=== PATIENT | male | born 1975 | race Caucasian/White ===

== ENCOUNTER 2017-11-08 20:26 | Observation (INO) ==
[2017-11-08] MEDS ORDERED: Aspirin 81 MG TAB.CHEW PO ONE (20:36)
--- NOTE | 2017-11-08 20:39 | Emergency Department Note ---
Disposition Clinical Impression: Chest pain Qualifiers: Chest pain type: unspecified Qualified Code(s): R07.9 - Chest pain, unspecified Disposition: Admitted As Inpatient Condition: Good Referrals: Daniel Mayer MD [Primary Care Provider] - Forms: ED Satisfaction Letter Time of Disposition: 22:14 Chest Pain HPI - General Chief Complaint: ED Shortness of Breath/Dyspnea Stated Complaint: "Chest Tight/SOB" Time Seen by Provider: 11/08/17 20:36 Source: patient Mode of arrival: ambulatory Limitations: no limitations Vital Signs Reviewed: Yes Nursing Notes Reviewed: Yes - History of Present Illness HPI Narrative: 42-year-old male comes in complaining of chest tightness and heaviness since last night. Patient has no recent cardiac workup. The patient's has a very strong family history with both his mom and dad have a early ME. The patient is a smoker, has high blood pressure, has high cholesterol. Pt complaint: chest pain Onset (ago): hour(s) (24) Duration: constant Onset: during rest Pain Location: substernal, left chest Severity: moderate Severity scale (1-10): 5 Quality: tightness, aching, heaviness Pain Radiation: none Improves with: nothing Worsens with: nothing Associated symptoms: Reports: dyspnea Treatments prior to arrival chest pain: none - Related Data Home Medications Medication Instructions Recorded Confirmed Albuterol Neb [Proventil Neb] 2.5 mg IH TID 11/08/17 11/08/17 Albuterol Sulfate [Proair Hfa] 2 puff IH Q6H PRN 11/08/17 11/08/17 Amitriptyline [Elavil] 50 mg PO HS 11/08/17 11/08/17 Beclomethasone Diprop 80mcg [Qvar 1 puff IH BID 11/08/17 11/08/17 80 mcg] Dextroamphetamine/Amphetamine 20 mg PO BID 11/08/17 11/08/17 [Adderall 20 mg Tablet] Fenofibric Acid (Choline) 135 mg PO DAILY 11/08/17 [Trilipix] Gabapentin [Neurontin] 1,200 mg PO TID 11/08/17 11/08/17 Lidocaine Patch [Lidoderm 5% patch] 1 each TP DAILY 11/08/17 11/08/17 Lisinopril/Hydrochlorothiazide 1 each PO DAILY 11/08/17 11/08/17 [Zestoretic 10-12.5 mg Tablet] Meloxicam [Meloxicam] 15 mg PO DAILY 11/08/17 11/08/17 OLANZapine [Zyprexa] 20 mg PO HS 11/08/17 11/08/17 Perphenazine [Trilafon] 2 mg PO BID 11/08/17 11/08/17 Pravastatin Sodium [Pravachol] 20 mg PO HS 11/08/17 11/08/17 Testosterone [Androgel] 20.25 mg TP DAILY 11/08/17 11/08/17 clonazePAM [Klonopin] 1 mg PO BID 11/08/17 11/08/17 Allergies Allergy/AdvReac Type Severity Reaction Status Date / Time metoclopramide [From Reglan] Allergy Hallucinati Verified 07/07/15 17:34 ng All systems ED: reviewed and negative except as stated. Constitutional: Denies: fever, chills, weakness, weight change Eyes: Denies: eye pain, eye discharge, vision change ENT ED: Denies: ear pain, throat pain, dental pain, hearing loss, epistaxis, congestion, dysphagia Cardiovascular: Reports: chest pain. Denies: palpitations, dyspnea on exertion , edema, syncope Respiratory: Denies: cough, dyspnea, wheezes, hemoptysis, stridor Gastrointestinal: Denies: abdominal pain, nausea, vomiting, diarrhea, constipation, hematemesis, melena, hematochezia Genitourinary: Denies: urgency, dysuria, frequency, hematuria Musculoskeletal: Denies: back pain, neck pain, arthralgia, myalgia Integumentary: Denies: rash, abrasion, lesions Neurological: Denies: headache, weakness, numbness, paresthesias, confusion, abnormal gait, vertigo Psychiatric: Denies: anxiety, depression, suicidal thoughts, homicidal thoughts , auditory hallucinations, visual hallucinations Endocrine: Denies: fatigue Hematological/Lymphatic: Denies: easy bleeding, easy bruising Allergic/Immunologic: Denies: facial swelling, urticaria Chest Pain PMH - Past Medical History Medical history: Reports: arthritis, COPD, coronary artery disease, hyperlipidemia, hypertension Surgical history: Reports: knee replacement Psychiatric history: Reports: anxiety - Social History Smoking Status: Current every day smoker Alcohol use: Reports: none Drug use: Reports: none Physical Exam - General Limitations: no limitations General appearance: alert, in no apparent distress - Head Head exam: atraumatic, normocephalic, normal inspection - Eye Eye exam: Present: normal appearance, PERRL, EOMI - ENT ENT exam: normal exam, normal oropharynx, mucous membranes moist - Neck Neck exam: Present: normal inspection - Chest Chest inspection: Present: normal inspection, symmetric chest wall rise - Respiratory Respiratory exam: Present: normal lung sounds bilaterally - Cardiovascular Cardiovascular exam: Present: regular rate - Abdominal Exam Abdominal exam: Present: soft, Non-Tender. Absent: tenderness, distention, guarding, rebound, rigidity - Extremities Exam Extremities exam: Present: normal inspection, full ROM. Absent: tenderness, pedal edema - Expanded Lower Extremity Exam Neurovascular/Tendon exam: Absent: motor deficit, sensory deficit, tendon deficit Gait: observed and normal - Back Exam Back exam: Present: normal inspection, full ROM. Absent: tenderness - Neurological Exam Neurological exam: Present: alert, oriented X3 - Psychiatric Psychiatric exam: Present: normal affect, normal mood - Skin Skin exam: Present: warm, dry, intact, normal color Course - Reevaluation(s) Reevaluation #1: 42-year-old male with multiple risk factors come in complaining of chest pain. The EKG showed no acute changes and initial troponin is negative in light of his multiple risk factors and his pain that is consistent with a cardiac origin chest pain or going to admit. Time: 22:14 - Consultations Consultation #1: Discussed with gail Ward. Time: 22:57 Vital Signs Temperature 97.7 F 11/08/17 20:27 Pulse Rate 107 11/08/17 20:27 Respiratory Rate 16 11/08/17 20:27 Blood Pressure 156/97 11/08/17 20:27 O2 Sat by Pulse Oximetry 99 11/08/17 20:27 Temperature 97.7 F 11/08/17 20:27 Pulse Rate 85 11/08/17 22:56 Respiratory Rate 16 11/08/17 22:56 Blood Pressure 130/52 11/08/17 22:56 O2 Sat by Pulse Oximetry 96 11/08/17 22:56 Oxygen Delivery Oxygen Delivery Room Air Chest Pain - Lab Data Lab results reviewed: Yes I reviewed the patient's lab results. Result diagrams: 11/08/17 20:46 11/08/17 20:46 Lab Results 11/08/17 11/08/17 11/08/17 Range/Units 20:36 20:46 20:46 WBC 7.0 (4.3-11.1) K/mcL RBC 5.13 (4.19-5.50) M/mcL Hgb 15.7 (12.9-16.9) g/dL Hct 46.5 (37.5-50.1) % MCV 90.6 (83.0-100.0) fL MCH 30.6 (28.0-33.3) pg MCHC 33.8 (31.6-35.5) g/dL RDW 13.8 (11.5-14.5) % Plt Count 222 (140-400) K/mcL MPV 10.5 (9.4-12.4) fL Immature Gran % 0.3 (0-4) % Seg Neutrophils % 50.7 % Lymphocytes % 40.5 % Monocytes % 5.9 % Eosinophils % 1.7 % Basophils % 0.9 % Neutrophils # 3.5 (1.6-8.9) K/mcL Lymphocytes # 2.8 (0.6-4.6) K/mcL Monocytes # 0.4 (0.0-1.3) K/mcL Eosinophils # 0.1 (0.0-0.6) K/mcL Basophils # 0.1 (0.0-0.2) K/mcL PT 10.1 (9.4-12.1) Seconds INR 0.9 APTT 27.9 (26.0-36.0) Seconds Sodium 139 (136-145) mEq/L Potassium 3.6 (3.5-5.1) mEq/L Chloride 101 (98-107) mEq/L Carbon Dioxide 32 H (23-29) mEq/L BUN 12 (6-20) mg/dL Creatinine 1.00 (0.70-1.30) mg/dL Est GFR ( Amer) > 60 (> 60) Est GFR (Non-Af Amer) > 60 (> 60) BUN/Creatinine Ratio 12 (6-26) Glucose 88 (70-105) mg/dL Calculated Osmolality 287 (280-300) Calcium 10.1 (8.6-10.3) mg/dL Troponin I < 0.03 (< 0.04) ng/mL - Radiology Data Radiology results reviewed: Yes I reviewed the patient's radiology results. Chest X-Ray 11/08/17 20:36 IMPRESSION: No acute cardiopulmonary process. D/ / 11/08/2017 20:56:23 Celso Wakefield MD / tay Interpreting Provider: Celso Wakefield MD - EKG Data EKG attestation: Yes I reviewed and interpreted this EKG. EKG shows normal: sinus rhythm Rate: normal Rhythm: NSR [place]/QRS: normal Interpretation: no acute changes Heart Score - Score History: Moderately Suspicious EKG: Non Specific repolarisation Disturbance Age: Less than 45 Risk Factors: Equal/Greater than 3 risk factor or history of atherosclerotic disease Troponin: Less than normal limit HEART Score Total: 4
[2017-11-08 21:12] LABS: Basophils # 0.1 K/mcL (0.0-0.2); Basophils % 0.9 %; Eosinophils # 0.1 K/mcL (0.0-0.6); Eosinophils % 1.7 %; Hematocrit 46.5 % (37.5-50.1); Hemoglobin 15.7 g/dL (12.9-16.9); Immature Granulocytes % 0.3 % (0-4); Lymphocytes # 2.8 K/mcL (0.6-4.6); Lymphocytes % 40.5 %; Mean Corpuscular HGB Conc 33.8 g/dL (31.6-35.5); Mean Corpuscular Hemoglobin 30.6 pg (28.0-33.3); Mean Corpuscular Volume 90.6 fL (83.0-100.0); Mean Platelet Volume 10.5 fL (9.4-12.4); Monocytes # 0.4 K/mcL (0.0-1.3); Monocytes % 5.9 %; Neutrophils # 3.5 K/mcL (1.6-8.9); Platelet Count 222 K/mcL (140-400); Red Blood Count 5.13 M/mcL (4.19-5.50); Red Cell Distribution Width 13.8 % (11.5-14.5); Segmented Neutrophils % 50.7 %
[2017-11-08 21:20] LABS: BUN/Creatinine Ratio 12 (6-26); Blood Urea Nitrogen 12 mg/dL (6-20); Calcium 10.1 mg/dL (8.6-10.3); Carbon Dioxide 32 mEq/L (23-29); Chloride 101 mEq/L (98-107); Glucose 88 mg/dL (70-105); Osmolality,Calculated 287 (280-300); Potassium 3.6 mEq/L (3.5-5.1); Sodium 139 mEq/L (136-145); Troponin I < 0.03 ng/mL (< 0.04); eGFR For African Americans > 60 (> 60); eGFR For Non-African Americans > 60 (> 60)
[2017-11-08 21:23] LABS: INR 0.9; Prothrombin Time 10.1 Seconds (9.4-12.1)
[2017-11-08 21:25] LABS: Activated Partial Thrombo Time 27.9 Seconds (26.0-36.0)
[2017-11-09] MEDS ORDERED: *HR* HYDROcodone/Acet 5/325 mg TABLET PO PRN (00:56)
[2017-11-09] MEDS ORDERED: *HR* OxyCODONE Immed Rel 5 MG TABLET PO PRN (00:56)
[2017-11-09] MEDS ORDERED: Naloxone 0.4 MG/ML INJ IVP PRN (00:56)
[2017-11-09] MEDS ORDERED: Acetaminophen 325 MG TABLET PO PRN (00:56)
--- NOTE | 2017-11-09 01:36 | Internal Med History&Physical ---
Date of Encounter: 11/09/17 Time of Encounter: 01:15 Assessment and Plan (1) Chest pain Current visit: Yes Status: Acute Multiple risk factors for ACS. Trend troponins. Telemetry monitoring. If troponins negative, stress test in a.m. Check lipid profile and A1c. Qualifiers: Chest pain type: precordial pain Qualified Code(s): R07.2 - Precordial pain (2) Essential hypertension Current visit: Yes Status: Chronic Continue lisinopril and hydrochlorothiazide. (3) Paranoid schizophrenia in remission Current visit: Yes Status: Acute Continue home medications (4) Tobacco abuse Current visit: Yes Status: Acute Consult about cessation. Offered nicotine patch. Refused at this time. (5) COPD (chronic obstructive pulmonary disease) Current visit: Yes Status: Chronic Not in acute exacerbation. Use bronchodilators as needed. Qualifiers: COPD type: chronic bronchitis Chronic bronchitis type: simple Qualified Code(s): J41.0 - Simple chronic bronchitis Internal Medicine - H&P: HPI Chief complaint: Chest pain Admitted From: Emergency Dept Plans for Post Hospital Care: Home History of present illness: Mr. Fuchs is a 42 year old male patient with history of essential hypertension, paranoid schizophrenia, ADHD, COPD presented to the ER with complaints of chest pain. Pain is located in the central part of his chest. Described as heaviness and tightness. Nonradiating. Worsens with activity. Began on at night and has been persistent since then. Associated with some shortness of breath. Has history of chronic tobacco abuse and smoker's cough. Denies any palpitations. No lightheadedness or dizziness. Positive family history for heart disease in both mother and father. Past Med Surg Social Fam HX - Past Medical History Medical history: arthritis, COPD, coronary artery disease, hyperlipidemia, hypertension Psychiatric history: anxiety - Past Surgical History Surgical History: knee replacement - Social History Smoking Status: Current every day smoker Packs per day: 1 Smokeless Tobacco Status: No Alcohol use: none Drug use: none - Family History Father Living Status: Age at : 55 Cause of : massive heart attack Hx Family Cardiac Disorders: Yes Mother Age: 61 Living Status: Still Living Hx Family Cardiac Disorders: Yes (double bypass surgery at 50 y/o) Internal Medicine - H&P: Meds Albuterol Neb [Proventil Neb] 2.5 mg IH TID 11/08/17 [History] Albuterol Sulfate [Proair Hfa] 2 puff IH Q6H PRN 11/08/17 [History] Amitriptyline [Elavil] 50 mg PO HS 11/08/17 [History] Beclomethasone Diprop 80mcg [Qvar 80 mcg] 1 puff IH BID 11/08/17 [History] Dextroamphetamine/Amphetamine [Adderall 20 mg Tablet] 20 mg PO BID 11/08/17 [ History] Fenofibric Acid (Choline) [Trilipix] 135 mg PO DAILY 11/08/17 [History] Gabapentin [Neurontin] 1,200 mg PO TID 11/08/17 [History] Lidocaine Patch [Lidoderm 5% patch] 1 each TP DAILY 11/08/17 [History] Lisinopril/Hydrochlorothiazide [Zestoretic 10-12.5 mg Tablet] 1 each PO DAILY [History] Meloxicam [Meloxicam] 15 mg PO DAILY 11/08/17 [History] OLANZapine [Zyprexa] 20 mg PO HS 11/08/17 [History] Perphenazine [Trilafon] 2 mg PO BID 11/08/17 [History] Pravastatin Sodium [Pravachol] 20 mg PO HS 11/08/17 [History] Testosterone [Androgel] 20.25 mg TP DAILY 11/08/17 [History] clonazePAM [Klonopin] 1 mg PO BID 11/08/17 [History] 3 Allergy/AdvReac Type Severity Reaction Status Date / Time metoclopramide [From Reglan] Allergy Hallucinati Verified 07/07/15 17:34 ng All Systems PM: A 10-system review of systems was performed and is negative for pertinent findings except as documented above in the HPI. - Constitutional Constitutional: no chills, no fever(s), no night sweats - EENT Eyes: no change in vision, no discharge, no pain, no photophobia Ears: no ear discharge, no ear pain, no tinnitus Nose, mouth and throat: no dysphagia, no nasal discharge, no neck pain, no sore throat - Cardiovascular Cardiovascular ROS IM: chest pain, dyspnea, no diaphoresis, no lightheadedness, no palpitations, no syncope - Respiratory Respiratory: cough, no dyspnea, no wheezing, no excessive phlegm production - Gastrointestinal Gastrointestinal: no abdominal pain, no diarrhea, no hematemesis, no hematochezia, no melena, no nausea, no vomiting - Musculoskeletal Musculoskeletal ROS IM: no numbness, no tingling - Constitutional Vitals: Temp Pulse Resp BP Pulse Ox 98.5 F 92 18 126/75 97 11/09/17 00:03 11/09/17 00:03 11/09/17 00:03 11/09/17 00:03 11/09/17 00:07 General appearance: Present: cooperative, A&O X 3, answers questions appropriately - Respiratory Respiratory exam: Present: CTAB. Absent: accessory muscle use, rales, rhonchi, wheezes - Cardiovascular Cardiovascular exam: Present: RRR, +S1, +S2. Absent: diastolic murmur, gallop, rubs, systolic murmur - GI/Abdominal GI/Abdominal exam: Present: normal bowel sounds, soft, no peritoneal signs. Absent: distended, tenderness - Extremities Exam Extremities exam: Present: warm, radial pulses palpable and symmetrical. Absent : calf tenderness, cyanotic, pedal edema Internal Med - H&P Results - Labs CBC & Chem 7: 11/08/17 20:46 11/08/17 20:46 - EKG Data -: EKG Interpreted by Myself EKG shows normal: sinus rhythm - EKG Data Interpretation IM: normal EKG - Impressions Impressions Chest X-Ray 11/08/17 20:36 IMPRESSION: No acute cardiopulmonary process. D/ / 11/08/2017 20:56:23 Celso Wakefield MD / [email or web address] Interpreting Provider: Celso Wakefield MD
[2017-11-09 04:15] LABS: Chol/HDL Ratio 8.5 (0-4.9)
[2017-11-09] MEDS ORDERED: Regadenoson 0.4 MG/5 ML SYRINGE IVP ONE (05:51)
[2017-11-09] MEDS ORDERED: Gabapentin 400 MG CAPSULE PO SCH (09:00)
[2017-11-09] MEDS ORDERED: clonazePAM 1 MG TABLET PO SCH (09:00)
[2017-11-09] MEDS ORDERED: Perphenazine 2 MG TABLET PO SCH (09:00)
[2017-11-09 09:32] LABS: Hemoglobin A1C 5.4 %
[2017-11-09] MEDS ORDERED: Beclomethasone 80mcg MDI IH SCH (10:00)
[2017-11-09 11:16] VITALS: BP 114/68
--- NOTE | 2017-11-09 11:37 | Discharge Summary ---
<Gregory Schwartz - Last Filed: 11/09/17 11:59> - NOTES TO OUTPATIENT PROVIDER Notes to Outpatient Provider: Patient admitted for chest pain, ACS rule out. Stress test normal and troponins negative. Orders not resulted at time of discharge: Pending orders 11/09/17 00:57 NM chuck perf SPECT multi [NM] Routine Date of Encounter: 11/09/17 Time of Encounter: 10:05 - Discharge Diagnosis (1) Chest pain Priority: Primary Status: Acute Qualifiers: Chest pain type: precordial pain Qualified Code(s): R07.2 - Precordial pain (2) Paranoid schizophrenia in remission Priority: Secondary Status: Acute (3) Tobacco abuse Priority: Secondary Status: Acute (4) COPD (chronic obstructive pulmonary disease) Priority: Secondary Status: Chronic Qualifiers: COPD type: chronic bronchitis Chronic bronchitis type: simple Qualified Code(s): J41.0 - Simple chronic bronchitis (5) Essential hypertension Priority: Secondary Status: Chronic Hospital course: Mr. Fuchs is a 42 year old male admitted for chest pain, ACS rule out. Patient with history of essential hypertension, paranoid schizophrenia, ADHD, COPD presented to the ER with complaints of chest pain. Pain was located in the central part of his chest. Described as heaviness and tightness. Notes some associated mild upper back/low neck achy pain. Worsens with activity. Began on 11/07/17 at night and resolved early this morning(10/12/17). Associated with some shortness of breath. Has history of chronic tobacco abuse and smoker's cough. Labs show no leukocytosis, no anemia, electrolytes normal; triglyerides elevated at 331 and HDL low at 22. Patient currently chest pain free. Stress test normal with gated EF of 60% and no ischemia noted. Also troponins negative x 2. Patient does have history of GERD, though states he has reflux daily and this Chest Pain was not similar to that discomfort, however patient in no longer on nexium. Recommend follow up with PCP and cardiology. No aute intervention indicated at that time. Recommend smoking cessation. Patient states he feels well and is ready to go home. Discharge discussed with: patient Time spent discussing smoking cessation with patient: 3 to 10 minutes - Time Spent with Patient Total time spent providing and/or coordinating discharge services: Greater than 30 minutes (35mins) - Discharge Medications Home Medications: Albuterol Neb [Proventil Neb] 2.5 mg IH TID 11/08/17 [History] Albuterol Sulfate [Proair Hfa] 2 puff IH Q6H PRN 11/08/17 [History] Amitriptyline [Elavil] 50 mg PO HS 11/08/17 [History] Beclomethasone Diprop 80mcg [QVAR 80 mcg] 1 puff IH BID 11/08/17 [History] Dextroamphetamine/Amphetamine [Adderall 20 mg Tablet] 20 mg PO BID 11/08/17 [ History] Fenofibric Acid (Choline) [Trilipix] 135 mg PO DAILY 11/08/17 [History] Gabapentin [Neurontin] 1,200 mg PO TID 11/08/17 [History] Lidocaine Patch [Lidoderm 5% patch] 1 each TP DAILY 11/08/17 [History] Lisinopril/Hydrochlorothiazide [Zestoretic 10-12.5 mg Tablet] 1 each PO DAILY [History] Meloxicam 15 mg PO DAILY 11/08/17 [History] OLANZapine [Zyprexa] 20 mg PO HS 11/08/17 [History] Perphenazine [Trilafon] 2 mg PO BID 11/08/17 [History] Pravastatin Sodium [Pravachol] 20 mg PO HS 11/08/17 [History] Testosterone [Androgel] 20.25 mg TP DAILY 11/08/17 [History] clonazePAM [Klonopin] 1 mg PO BID 11/08/17 [History] Allergies/Adverse Reactions: 3 Allergy/AdvReac Type Severity Reaction Status Date / Time metoclopramide [From Reglan] Allergy Hallucinati Verified 07/07/15 17:34 ng Date of admission: 11/08/17 23:56 Primary care physician: Daniel Mayer MD Discharging clinician: Tyrell Zheng Anticipated date of discharge: 11/09/17 - Constitutional Vitals: Temp Pulse Resp BP Pulse Ox 98 F 78 16 114/68 96 11/09/17 09:50 11/09/17 09:50 11/09/17 11:03 11/09/17 09:50 11/09/17 11:03 General appearance: Present: cooperative, A&O X 3, answers questions appropriately - Head Head exam: Present: atraumatic, normocephalic - Eye Eye exam: Present: EOMI, conjuntiva pink - Neck Neck exam general surgery: Present: full ROM, supple, trachea midline - Respiratory Respiratory exam: Present: CTAB. Absent: accessory muscle use, rales, rhonchi, wheezes - Cardiovascular Cardiovascular exam: Present: RRR, +S1, +S2. Absent: diastolic murmur, gallop, rubs, systolic murmur - GI/Abdominal GI/Abdominal exam: Present: normal bowel sounds, soft, no peritoneal signs. Absent: distended, tenderness - Extremities Exam Extremities exam: Present: warm. Absent: calf tenderness, cyanotic, pedal edema - Neurological Exam Neurological exam: Present: alert, oriented X3, no focal deficits. Absent: facial droop, speech deficit - Skin Skin exam: Present: dry, intact - Patient Status Disposition: Home, Self-Care Condition: Good Functional capacity at discharge: independent ambulation Overall status at discharge: patient is back to baseline - Discharge Instructions Instructions: Chest Pain (DC) Follow Up With: Cardiology [facility] [Provider Group] - 11/28/17 9:00 am Daniel Mayer MD [Primary Care Provider] - 11/13/17 10:00 am Additional Instructions: Please follow up as outpatient with Cardiology and your Primary Care Provider. Please return or seek medical care if you have new or worsening symptoms such as worsening chest pain, shortness of breath, dizziness, confusion. - Diet and Activity Activity: resume usual activities as tolerated Diet: advance to your usual diet <Tyrell Zheng - Last Filed: 11/09/17 17:54> Orders not resulted at time of discharge: Pending orders 11/09/17 00:57 NM chuck perf SPECT multi [NM] Routine Date of Encounter: 11/09/17 - Discharge Diagnosis (1) Chest pain Status: Ruled-out Qualifiers: Chest pain type: chest pain due to myocardial ischemia Ischemic chest pain type: unstable angina pectoris Qualified Code(s): I20.0 - Unstable angina (2) COPD (chronic obstructive pulmonary disease) Status: Chronic Qualifiers: COPD type: chronic bronchitis Chronic bronchitis type: simple Qualified Code(s): J41.0 - Simple chronic bronchitis (3) Essential hypertension Status: Chronic (4) Paranoid schizophrenia in remission Status: Chronic (5) Tobacco abuse Status: Chronic Hospital course: Mr. Fuchs is a 42 year old male - Time Spent with Patient Total time spent providing and/or coordinating discharge services: 38min Date of admission: 11/08/17 23:56 Primary care physician: Daniel Mayer MD - Constitutional Vitals: Temp Pulse Resp BP Pulse Ox 98 F 78 16 114/68 96 11/09/17 09:50 11/09/17 09:50 11/09/17 11:03 11/09/17 09:50 11/09/17 11:03 - Attending Attestation I examined this patient and my medical decision-making was reviewed with the Resident Physician on 11/09/17. I agree with the documented findings, disposition and treatment plan as described except to the extent set forth below. Mr Fuchs has been in observation for chest pain. His symptoms have resolved. He underwent stress test today which was negative. He feels at baseline and is ready for discharge home and outpatient follow up. Exam Alert Comfortable Mucus membranes dry Heart reg No wheeze Plan D/C home today Follow up with PCP and cardiology.
[2017-11-09] MEDS ORDERED: OLANZapine 10 MG TAB.RAPDIS PO SCH (21:00)
--- NOTE | 2017-11-10 16:23 | Electrocardiograph Report ---
[place] [id number] Test Date: 2017-11-08 Pat Name: Alfredo Fuchs Department: 103 Room: [facility] Gender: M Right Of Way Clearer: : 1975 Requested By: Luis Piedra Order Number: [id number] Reading MD: Luis Muñoz DO Measurements Intervals [place] Rate: 96 P: 71 DC: 163 QRS: 76 QRSD: 99 T: 30 QT: 331 QTc: 385 Interpretive Statements SINUS RHYTHM NONSPECIFIC T-WAVE ABNORMALITY Electronically Signed On 11-10-2017 16:21:24 EST by Luis Muñoz DO
== END 2017-11-09 12:50 | disposition home or self-care (01) ==
LOC: 3NENU 20:26 → EMEROO 20:26 → 3NENU 23:51 → SUATTDRO 23:56
PROVIDERS: ADMIT Internal Medicine; ATTEND Internal Medicine